=== PATIENT | male | born 1960 | race Caucasian/White ===

== ENCOUNTER 2017-09-06 08:55 | Inpatient (IN) | payer BC, OTHER ==
[2017-09-06 09:45] LABS: #Eosinphils 0.1 thou/uL (0.0-0.7); #Lymphocytes 1.4 thou/uL (1.20-3.40); #Monocytes 0.5 thou/uL (0.11-0.59); #Neutrophils 3.7 thou/uL (1.40-6.50); %Basophils 0.3 % (0.0-1.0); %Eosinophils 1.6 % (0.0-10.0); %Lymphocytes 24.1 % (21.0-51.0); %Monocytes 8.8 % (0.0-10.0); %Neutrophils 65.2 % (42.0-75.0); Hemoglobin 15.1 g/dL (14.0-18.0); Mean Corpuscular HGB CONC 32.4 g/dL (32.0-36.0); Mean Corpuscular Hemoglobin 29.4 pg (27.0-31.0); Mean Corpuscular Volume 90.6 fl (80.0-94.0); Mean Platelet Volume 9.3 fL (7.4-10.4); Platelet Count 110 thou/uL (130-400); RBC Distribution Width 13.3 % (11.5-14.5); Red Blood Cell (RBC) Count 5.15 mill/uL (4.70-6.10); White Blood Cell (WBC) Count 5.6 thou/uL (4.8-10.8)
[2017-09-06 10:07] LABS: ALT (SGPT) 18 U/L (8-55); AST (SGOT) 19 U/L (5-34); Albumin 4.1 g/dL (3.5-5.0); Alkaline Phosphatase 71 U/L (40-150); Anion Gap 12 mmol/L (10-20); BUN (Urea Nitrogen) 17 mg/dL (8.4-25.7); Bilirubin, Total 1.7 mg/dL (0.2-1.2); Calc. Creatinine Clearance 0 mL/min (70-130); Calcium 9.1 mg/dL (7.8-10.44); Carbon Dioxide 31 mmol/L (22-29); Chloride 102 mmol/L (98-107); Estimated GFR-MDRD 70; Globulin 2.8 g/dL (2.4-3.5); Glucose 88 mg/dL (70-105); Potassium 3.3 mmol/L (3.5-5.1); Protein, Total 6.9 g/dL (6.0-8.3); Sodium 142 mmol/L (136-145)
[2017-09-06 10:09] LABS: CKMB 2.5 ng/mL (0-6.6); Troponin I 0.015 ng/mL (< 0.028)
--- NOTE | 2017-09-06 11:09 | RAD ---
CHEST 1 VIEW: Date: 09/06/17 HISTORY: Right-sided chest pain. High blood pressure. COMPARISON: Chest 1 view dated 07/08/16. FINDINGS: Heart size is markedly enlarged. There is obscuration of the left lateral hemidiaphragm. No pneumotho rax. Mild ectasia of the distal thoracic aorta. IMPRESSION: Marked cardiomegaly and obscuration of left lateral hemidiaphragm may represent layering effusion bashir samm marked increased mediastinal fat. POS: OFF
[2017-09-06] MEDS ORDERED: Potassium Chloride 20 MEQ TAB ONE (11:20)
[2017-09-06] MEDS ORDERED: hydrALAZINE 20 MG/ML VIAL ONE (11:20)
[2017-09-06] MEDS ORDERED: Furosemide 40 MG/4 ML VIAL ONE (11:20)
[2017-09-06] MEDS ORDERED: Acetaminophen 325 MG TAB PO PRN (11:59)
[2017-09-06] MEDS ORDERED: Acetaminophen 650 MG Suppository PR PRN (11:59)
[2017-09-06 12:57] LABS: Troponin I 0.021 ng/mL (< 0.028)
[2017-09-06] MEDS ORDERED: Ondansetron HCl/PF 4 MG/2 ML Vial IVP PRN (13:40)
[2017-09-06] MEDS ORDERED: Ondansetron ODT 4 MG TAB PO PRN (13:40)
[2017-09-06 13:47] VITALS: BMI 39.6
[2017-09-06] MEDS ORDERED: Metoprolol Tartrate 5 MG/5 ML VIAL IVP SCH (15:30)
--- NOTE | 2017-09-06 15:55 | CON ---
DATE OF CONSULTATION: 09/06/2017 REASON FOR CONSULTATION: Atrial fibrillation and shortness of breath. HISTORY OF PRESENT ILLNESS: Mr. Gong is a very pleasant 56-year-old white gentleman who comes to the hospital for shortness of breath. He has noted that in the last few days he has been slowly getting more short of breath to the point where he is having to sleep with 2 pillows. He states that he bends the pillows to get him at about a 45 degree angle. He otherwise gets short of breath and starts coughing if he lays too flat and is unable to sleep. He states that today he developed right-sided chest pain. The pain is worse when he moves his arm backwards and it takes a few minutes to get better, but the movement is what triggers it. The pain is not reproducible with one finger as well. He was seen in the ER for this and was found to be in atrial fibrillation , RVR and possibly in heart failure, so Cardiology was consulted for all of this. He has seen Cardiology in the past. He used to see Dr. Booth several years ago. More recently he followed with Dr. Li at [facility] and he had some tests that he is not sure, he thinks he went to the OR and has something stuck in his right arm, but his tells me that she is very certain that he did not have a heart catheterization. It might have been a stress test. We will ask her records for this. PAST MEDICAL HISTORY: 1. COPD. 2. Hiatal hernia. 3. Possible history of atrial fibrillation; however, I asked the patient if he has never been told he has been in atrial fibrillation before, he tells me he had not heard that until today. 4. History of chronic shortness of breath. 5. Obesity. 6. Hypertension. 7. Type 2 diabetes. 8. Depression. 9. Moderate aortic valve insufficiency. PAST SURGICAL HISTORY: 1. Hernia surgery, He states his heart stopped during surgery. SOCIAL HISTORY: No alcohol, tobacco or drugs. He does chew tobacco. OUTPATIENT MEDICATIONS: 1. Losartan/HCTZ 100/25 mg a day. 2. Metformin 500 mg q.a.m. 3. Sertraline. 4. Amlodipine 10 mg a day. 5. Furosemide 40 mg a day. ALLERGIES: PENICILLIN causes hives. FAMILY HISTORY: Noncontributory. REVIEW OF SYSTEMS: A 12-point review of systems was done and is all negative unless stated below. He has had increase in his shortness of breath recently. PHYSICAL EXAMINATION: VITAL SIGNS: Temperature 98.3, pulse from 90-120, respiratory rate 22, satting 94% on room air, blood pressure 161/97. GENERAL: Awake, alert, oriented x3, in no distress. HEENT: Normocephalic, atraumatic. NECK: Supple. LUNGS: Reduced breath sounds. CARDIOVASCULAR: S1, S2, irregularly irregular. Heart rate in the 110s. There is a grade 2/6 systolic murmur in the right upper sternal border. ABDOMEN: Prominent but soft, nontender. EXTREMITIES: 1+ edema. SKIN: Warm and dry. LABORATORY WORK: Reviewed. CBC is unremarkable. D-dimer was normal. Chemistry with low potassium of 3.3, otherwise unremarkable. GFR was 70, total bilirubin was 1.7. Troponin I was negative x2 and a BNP of 164, albumin of 4.1 , globulin of 2.8. Chest x-ray on admission showed marked cardiomegaly and possible left effusion. EKG is reviewed, atrial fibrillation with RVR. ASSESSMENT AND PLAN: 1. Atrial fibrillation with rapid ventricular response, new onset. We will attempt to slow them down with a p.o. beta penelope first. I do not want to start any antiarrhythmics until I am sure what his left ventricular function is , I suspect this might be reduced. We will do full anticoagulation with subcutaneous Lovenox for stroke prophylaxis. If his LV function is normal will plan on doing a EDEN/Cardioversion tomorrow and will start antiarrhythmic. 2. Right-sided chest pain: This is very atypical in nature. We will see what his echocardiogram shows. If he has got severe left ventricular dysfunction, he will need heart catheterization. If he has normal left ventricular, we may schedule a stress test tomorrow. 3. Moderate AI: echo pending. Will get medical records from [facility]. Thank you for letting us to participate in the care of your patient. We will follow. JATIN
[2017-09-06 16:15] LABS: Troponin I 0.016 ng/mL (< 0.028)
[2017-09-06] MEDS: Furosemide 40 MG/4 ML VIAL SLOW IVP SCH (16:23)
[2017-09-06] MEDS ORDERED: HumaLOG 300 UNITS/3 ML VIAL SC PRN (16:53)
[2017-09-06] MEDS ORDERED: Dextrose 50% Abboject 50 ML SYRINGE SLOW IVP PRN (16:53)
[2017-09-06] MEDS ORDERED: Dextrose 5% in Water 1,000 ML IV PRN (16:53)
[2017-09-06] MEDS ORDERED: Potassium Chloride 20 MEQ TAB PO SCH (17:00)
[2017-09-06] MEDS ORDERED: Amiodarone In Dextrose 200 ML IVPB SCH (17:45)
--- NOTE | 2017-09-06 17:51 | HP ---
PRIMARY CARE PHYSICIAN: Prema Johnson M.D. CHIEF COMPLAINT: Chest pain. HISTORY OF PRESENT ILLNESS: Mr. Gong is a pleasant 56-year-old gentleman, who was seen at [facility] on 09/06/2017. He works in the [employer] system. He reports that over the last couple of weeks he has had right-sided chest pain. He describes it as sharp, 9/10 at its worst, on and off, no known aggravating or relieving factors, accompanied by shortness of breath, not accompani ed by nausea or lightheadedness. He denies that there is a pleuritic component. He denies any abdom inal pain. He also reports that he has had long-term bilateral leg swelling for which he takes diure tics. He is unable to recall his medications at this point in time. Please note that the patient is a poor historian. Collateral history was obtained from his by the bedside, review of medical r ecords and discussion with the emergency room physician. REVIEW OF SYSTEMS: The following complete review of systems was negative, unless otherwise mentioned in the HPI or below: Constitutional: Weight loss or gain, ability to conduct usual activities. Skin: Rash, itching. Eyes: Double vision, pain. ENT/Mouth: Nose bleeding, neck stiffness, pain, tenderness. Cardiovascular: Palpitations, dyspnea on exertion, orthopnea. Respiratory: Shortness of breath, wheezing, cough, hemoptysis, fever or night sweats. Gastrointestinal: Poor appetite, abdominal pain, heartburn, nausea, vomiting, constipation, or diarr hea. Genitourinary: Urgency, frequency, dysuria, nocturia. Musculoskeletal: Pain, swelling. Neurologic/Psychiatric: Anxiety, depression. Allergy/Immunologic: Skin rash, bleeding tendency. PAST MEDICAL HISTORY: Significant for hypertension, borderline diabetes mellitus, asthma COPD, and h iatal hernia. PAST SURGICAL HISTORY: Significant for 5 surgeries approximately 4 years ago for a large hiatal kelin ia. He reportedly had cardiac arrest during the surgery and AED was used to resuscitate him. He spe nt 3 months in the hospital following the surgery. FAMILY HISTORY: Significant for heart problems in his father. SOCIAL HISTORY: The patient denies tobacco use, alcohol use or recreational drug use. ALLERGIES: PENICILLIN. CURRENT MEDICATIONS: These were clarified, and include amlodipine 10 mg daily, Lasix 40 mg daily, lo sartan/hydrochlorothiazide 1 tablet daily, metformin 500 mg daily, and Zoloft 25 mg daily. PHYSICAL EXAMINATION: GENERAL: Mr. Gong is awake and alert, not in acute distress. He is morbidly obese. VITAL SIGNS: Blood pressure is 135/107, pulse is 93. He is breathing at rate of 24 and saturating 9 5% on room air. He is afebrile. EYES: No scleral icterus. No conjunctival pallor. ENT: Moist mucosal membranes, no oropharyngeal erythema or exudates. NECK: Supple, nontender, normal range of movement, trachea is midline, jugular veins were difficult to assess. RESPIRATORY: Accessory muscles of breathing are mildly active. Chest wall movements are symmetric b ilaterally. LUNGS: Clear to auscultation without wheeze, rhonchi or crepitations. CARDIOVASCULAR: S1 and S2 are heard, irregular and tachycardic. Peripheral pulses are palpable. No carotid bruit, no pericardial rub. ABDOMEN: Distended, nontender, bowel sounds heard, no hepatomegaly, no splenomegaly. NEUROLOGIC: Cranial nerves II through XII intact. Deep tendon reflexes are 2+. MUSCULOSKELETAL: Power is 5/5 in all 4 extremities. He has bilateral lower extremity edema. SKIN: No rashes or subcutaneous nodules. LYMPHATIC: No cervical lymphadenopathy. PSYCHIATRIC: Normal mood, normal affect, patient is oriented to person, place, and time. LABORATORY DATA: Mr. Gong's labs and investigations were reviewed. I reviewed his electrocardiogram , which shows atrial fibrillation with rapid ventricular response, no ST changes to suggest an acute coronary syndrome. I also reviewed his chest x-ray, which does not show any pulmonary infiltrates. He has cardiomegaly. He also has chronic appearing opacity in the left lower lobe, which has not calvin nged since 07/08/2016. Radiologist feels this may be a layering effusion versus mediastinal fat. Laboratory investigations show normal white count, normal hemoglobin, decreased platelet count of 110 ,000, normal D-dimer of 0.33, normal sodium, decreased potassium of 3.3, elevated carbon dioxide of 3 1, normal anion gap, normal blood urea nitrogen, normal creatinine, elevated total bilirubin of 1.7, otherwise unremarkable liver function tests, elevated BNP of 164 and normal troponin I x2. ASSESSMENT AND PLAN: Mr. Gong is a pleasant 56-year-old gentleman, who was seen at [facility] on 09/06/2017. His problem list includes: 1. Chest pain: Mr. Gong is presenting to the hospital with right-sided chest pain. His chest pain is atypical for coronary artery disease. However, he does have risk factors for coronary artery dise ase. He will be admitted to the hospital for telemetry monitoring and for further management, includ ing Cardiology Service consultation for their opinion. 2. Atrial fibrillation with rapid ventricular response: He appears to have new onset atrial fibrill ation with rapid ventricular response. We will monitor on telemetry, we will await Cardiology Servic e input. 3. Congestive heart failure: He appears to be in congestive heart failure exacerbation. We will ad sharmila him to the hospital and provide intravenous diuretics. 4. Hypokalemia: Replace potassium. 5. Diabetes mellitus type 2: Start Accu-Cheks, sliding scale. 6. Asthma/chronic obstructive pulmonary disease: Bronchodilators as needed. 7. Hypertension: Monitor vital signs, titrate antihypertensives as needed. Many thanks for allowing me to participate in Mr. Gong's care. Please feel free to contact me with a ny questions or concerns. LEVEL OF RISK: High. LEVEL OF COMPLEXITY: High.
[2017-09-06 19:31] LABS: Magnesium 2.5 mg/dL (1.6-2.6); Potassium 3.6 mmol/L (3.5-5.1)
[2017-09-06 19:36] LABS: ALT (SGPT) 21 U/L (8-55); AST (SGOT) 22 U/L (5-34); Albumin 4.4 g/dL (3.5-5.0); Alkaline Phosphatase 79 U/L (40-150); Bilirubin, Direct 0.6 mg/dL (0.1-0.3); Bilirubin, Total 1.8 mg/dL (0.2-1.2); Protein, Total 7.7 g/dL (6.0-8.3)
[2017-09-06] MEDS: Amiodarone HCl 450 MG, Admixture Fee 1 EACH in Dextrose 5% in Water 250 ML IVPB SCH ×3 (20:18)
[2017-09-06] MEDS: Enoxaparin Sodium 120 MG/0.8 ML SYRINGE SC SCH (20:51)
[2017-09-06] MEDS: Metoprolol Tartrate 25 MG TAB PO SCH (20:51)
[2017-09-06] MEDS ORDERED: Metoprolol Tartrate 25 MG TAB PO SCH (21:00)
[2017-09-06] MEDS ORDERED: FLU VACC QS2017-18 36 mo. & older 0.5 ML SYRINGE IM ONE (21:00)
[2017-09-07] MEDS: Amiodarone HCl 450 MG, Admixture Fee 1 EACH in Dextrose 5% in Water 250 ML IVPB SCH ×3 (05:01)
[2017-09-07 05:29] LABS: #Eosinphils 0.1 thou/uL (0.0-0.7); #Lymphocytes 1.6 thou/uL (1.20-3.40); #Monocytes 0.5 thou/uL (0.11-0.59); %Basophils 0.6 % (0.0-1.0); %Eosinophils 2.4 % (0.0-10.0); %Monocytes 9.6 % (0.0-10.0); %Neutrophils 57.3 % (42.0-75.0); Hemoglobin 15.4 g/dL (14.0-18.0); Mean Corpuscular Hemoglobin 28.9 pg (27.0-31.0); Mean Corpuscular Volume 90.4 fl (80.0-94.0); Mean Platelet Volume 9.2 fL (7.4-10.4); Platelet Count 115 thou/uL (130-400); RBC Distribution Width 13.3 % (11.5-14.5); Red Blood Cell (RBC) Count 5.33 mill/uL (4.70-6.10); White Blood Cell (WBC) Count 5.2 thou/uL (4.8-10.8)
[2017-09-07 05:41] LABS: Anion Gap 11 mmol/L (10-20); BUN (Urea Nitrogen) 20 mg/dL (8.4-25.7); Calc. Creatinine Clearance 116 mL/min (70-130); Calcium 9.2 mg/dL (7.8-10.44); Carbon Dioxide 32 mmol/L (22-29); Chloride 101 mmol/L (98-107); Estimated GFR-MDRD 65; Glucose 100 mg/dL (70-105); Potassium 3.4 mmol/L (3.5-5.1); Sodium 141 mmol/L (136-145)
[2017-09-07] MEDS: Furosemide 40 MG/4 ML VIAL SLOW IVP SCH ×2 (06:23→15:46)
[2017-09-07] MEDS ORDERED: Potassium Chloride 20 MEQ TAB PO SCH (08:15)
[2017-09-07] MEDS ORDERED: Enoxaparin Sodium 40 MG/0.4 ML SYRINGE SC SCH (09:00)
[2017-09-07] MEDS ORDERED: Diprivan 0 ML ONE (09:53)
[2017-09-07] MEDS ORDERED: Promethazine HCl 25 MG/ML VIAL IM PRN (10:31)
[2017-09-07] MEDS ORDERED: Ondansetron HCl/PF 4 MG/2 ML Vial IVP PRN (10:31)
[2017-09-07] MEDS ORDERED: Promethazine HCl 25 MG/ML VIAL SLOW IVP PRN (10:31)
[2017-09-07] MEDS: Enoxaparin Sodium 120 MG/0.8 ML SYRINGE SC SCH (11:28)
[2017-09-07] MEDS: Aspirin 325 MG TAB PO SCH (11:29)
[2017-09-07] MEDS: Metoprolol Tartrate 25 MG TAB PO SCH ×2 (11:30→20:30)
[2017-09-07] MEDS ORDERED: Amiodarone 200 MG TAB PO SCH (11:45)
[2017-09-07] MEDS ORDERED: Propofol 200 MG/20 ML VIAL ONE (14:25)
[2017-09-07] MEDS ORDERED: Lidocaine 1% PF 5 ML VIAL ONE (14:25)
--- NOTE | 2017-09-07 15:18 | PDOC.PN ---
- Subjective Encounter Start Date: 09/07/17 Encounter Start Time: 15:16 Pt seen for followup re: CHF exacerbation. Had cardioversion today (after EDEN) , feels better. - Objective MAR Reviewed: Yes Vital Signs & Weight: Vital Signs (12 hours) Temp Pulse Resp BP Pulse Ox 09/07/17 11:04 97.5 F L 61 20 159/94 H 93 L 09/07/17 08:00 97.5 F L 61 20 09/07/17 07:20 97.4 F L 87 16 156/96 H 94 L 09/07/17 04:10 98.3 F 87 18 132/90 93 L Weight Weight 261 lb I&O: 09/06/17 09/07/17 09/08/17 06:59 06:59 06:59 Intake Total 1452 Output Total 2350 Balance -898 Result Diagrams: 09/07/17 04:21 09/07/17 04:21 Additional Labs: Accuchecks 09/07/17 09/06/17 11:09 22:20 POC Glucose 90 124 H EKG Reviewed by me: Yes (Tele: NSR) Phys Exam - Physical Examination Obese HEENT: PERRLA, moist MMs, sclera anicteric, oral pharynx no lesions Neck: no nodes, supple, full ROM Respiratory: no wheezing, no rales, no rhonchi, clear to auscultation bilateral Cardiovascular: RRR, no rub Gastrointestinal: soft, non-tender, positive bowel sounds distended Musculoskeletal: edema present Neurological: moves all 4 limbs Psychiatric: normal affect, A&O x 3 Skin: no rash Dx/Plan (1) CHF exacerbation Code(s): I50.9 - HEART FAILURE, UNSPECIFIED Status: Acute (2) DM2 (diabetes mellitus, type 2) Status: Chronic (3) HTN (hypertension) Code(s): I10 - ESSENTIAL (PRIMARY) HYPERTENSION Status: Chronic (4) COPD (chronic obstructive pulmonary disease) Status: Chronic (5) Atrial fibrillation with RVR Code(s): I48.91 - UNSPECIFIED ATRIAL FIBRILLATION Status: Resolved - Plan * . Improved after cardioversion. Continue diuretics. Likely home tomorrow on amiodarone 400 mg PO BID, Lasix 40 mg Po daily and followup with cardiology in 2 weeks. Review of Systems - Review of Systems Constitutional: negative: fever, chills, sweats, weakness, malaise Respiratory: SOB with Excertion. negative: Cough, Dry, Shortness of Breath, Hemoptysis, Pleuritic Pain, Sputum, Wheezing Cardiovascular: negative: chest pain, palpitations, orthopnea, paroxysmal nocturnal dyspnea, edema, light headedness Gastrointestinal: negative: Nausea, Vomiting, Abdominal Pain, Diarrhea, Constipation, Melena, Hematochezia Genitourinary: negative: Dysuria, Frequency, Incontinence, Hematuria, Retention - Medications/Allergies Allergies/Adverse Reactions: Allergies Allergy/AdvReac Type Severity Reaction Status Date / Time Penicillins Allergy Intermediate Hives Verified 09/06/17 13:47 Medications: Current Medications Acetaminophen (Tylenol) 650 mg PO Q4H PRN PRN Reason: Headache/Fever or Pain Acetaminophen (Tylenol) 650 mg WA Q4H PRN PRN Reason: Headache/Fever or Pain Amiodarone HCl (Cordarone) 400 mg PO BID [facility] Apixaban (Eliquis) 5 mg PO BID [facility] Aspirin (Aspirin) 325 mg PO DAILY [facility] Last Admin: 09/07/17 11:29 Dose: 325 mg Dextrose/Water (Dextrose 50%) 25 gm SLOW IVP PRN PRN PRN Reason: Hypoglycemia Furosemide (Lasix) 40 mg SLOW IVP 0600,1400 [facility] Last Admin: 09/07/17 06:23 Dose: Not Given Glucagon (Glucagon) 1 mg IM PRN PRN PRN Reason: Hypoglycemia Dextrose/Water (D5w) 1,000 mls @ 0 mls/hr IV .Q0M PRN; As Directed PRN Reason: Hypoglycemia Insulin Human Lispro (Humalog) 0 units SC .MILD SLIDING SCALE PRN PRN Reason: Mild Correctional Scale Metoprolol Tartrate (Lopressor) 25 mg PO BID [facility] Last Admin: 09/07/17 11:30 Dose: 25 mg Sertraline HCl (Zoloft) 25 mg PO DAILY [facility] Last Admin: 09/07/17 11:30 Dose: 25 mg Sodium Chloride (Flush - Normal Saline) 10 ml IVF Q12HR [facility] Last Admin: 09/07/17 11:31 Dose: 10 ml Sodium Chloride (Flush - Normal Saline) 10 ml IVF PRN PRN PRN Reason: Saline Flush
[2017-09-07] MEDS: Apixaban 5 MG TAB PO SCH (20:30)
[2017-09-07] MEDS: Amiodarone 200 MG TAB PO SCH (20:30)
--- NOTE | 2017-09-07 22:52 | ECHO ---
DATE OF SERVICE: 09/07/2017. PREPROCEDURE DIAGNOSIS: Atrial fibrillation with RVR. PROCEDURE SUMMARY: The patient was brought to the PCU area for EDEN cardioversion. EDEN was performed initially. The [facility] thea department provided sedation for the patient. Please see their notes for details. After adeq uate sedation was achieved, transesophageal probe was inserted into the mouth and into the esophagus without problems. Multiplanar views were then attempted to be obtained. Of note, patient has a large hiatal hernia that obscured most of our views. Aortic valve appears to be normal. There is mild aortic insufficiency and left atrial appendage is s mall. No evidence of mass or thrombus. None of the other cardiac structures were seen adequately as he has a large hiatal hernia which obscu red the views. We were able to clear him from the thrombus standpoint. His left atrial appendage was seen clearly and it had no evidence of blood clots. CONCLUSIONS: No evidence of any thrombus in the left atrial appendage or left atrium.
--- NOTE | 2017-09-07 22:57 | OP ---
DATE OF SERVICE 09/07/2017. PROCEDURES PERFORMED: Cardioversion. SUMMARY: The patient was brought to the PCU area for planned EDEN cardioversion. EDEN was performed previously. Please see the note for details. Sedation was obtained by the Anesthesia Department, please their notes for details. After adequate s edation was obtained transesophageal echo cleared him of any thrombus in the left atrial appendage. Pads were in place and a single 100 joules synchronized shock was delivered successfully converted hi m from atrial fibrillation into normal sinus rhythm. Heart rate is in the 70s. Patient tolerated th e procedure well. RECOMMENDATIONS: 1. Continue full anticoagulation. We will start him on Eliquis this evening and will switch his ami odarone drip to p.o. load. 2. Follow up with me in the office in 2 weeks, at which point we will schedule an outpatient stress test and further evaluation. 3. Continue IV Lasix today and he may be discharged home tomorrow.
[2017-09-08 05:28] LABS: #Eosinphils 0.2 thou/uL (0.0-0.7); #Lymphocytes 1.1 thou/uL (1.20-3.40); #Monocytes 0.5 thou/uL (0.11-0.59); #Neutrophils 3.2 thou/uL (1.40-6.50); %Basophils 0.5 % (0.0-1.0); %Eosinophils 3.3 % (0.0-10.0); %Lymphocytes 22.5 % (21.0-51.0); %Monocytes 10.8 % (0.0-10.0); %Neutrophils 62.9 % (42.0-75.0); Hemoglobin 15.9 g/dL (14.0-18.0); Mean Corpuscular HGB CONC 33.5 g/dL (32.0-36.0); Mean Corpuscular Hemoglobin 30.4 pg (27.0-31.0); Mean Corpuscular Volume 90.8 fl (80.0-94.0); Mean Platelet Volume 9.3 fL (7.4-10.4); Platelet Count 106 thou/uL (130-400); RBC Distribution Width 13.1 % (11.5-14.5); Red Blood Cell (RBC) Count 5.23 mill/uL (4.70-6.10)
[2017-09-08 05:41] LABS: Anion Gap 12 mmol/L (10-20); BUN (Urea Nitrogen) 20 mg/dL (8.4-25.7); Calc. Creatinine Clearance 120 mL/min (70-130); Calcium 9.5 mg/dL (7.8-10.44); Carbon Dioxide 31 mmol/L (22-29); Chloride 102 mmol/L (98-107); Estimated GFR-MDRD 68; Glucose 100 mg/dL (70-105); Potassium 3.7 mmol/L (3.5-5.1); Sodium 141 mmol/L (136-145)
[2017-09-08] MEDS: Furosemide 40 MG/4 ML VIAL SLOW IVP SCH (06:06)
[2017-09-08] MEDS: Apixaban 5 MG TAB PO SCH (07:49)
[2017-09-08] MEDS: Amiodarone 200 MG TAB PO SCH (07:50)
[2017-09-08] MEDS: Metoprolol Tartrate 25 MG TAB PO SCH (07:50)
[2017-09-08] MEDS: Aspirin 325 MG TAB PO SCH (07:50)
[2017-09-08] MEDS ORDERED: Potassium Chloride 10 MEQ TAB PO SCH (09:00)
[2017-09-08 11:50] VITALS: BP 165/105; TEMP 97.8
--- NOTE | 2017-09-08 17:35 | EKG ---
Test Reason : Blood Pressure : / mmHG Vent. Rate : 091 BPM Atrial Rate : 072 BPM P-R Int : 000 ms QRS Dur : 114 ms QT Int : 408 ms P-R-T Axes : 000 -28 018 degrees QTc Int : 501 ms Sinus rhythm with sinus arrhythmia Incomplete right bundle branch block Prolonged QT Abnormal ECG Confirmed by SEA RODRIGEZ D.O. ([id number]), science editor HIRAM MERCEDES ([id number] on 09/08/2017 5:35:13 PM Referred By: Confirmed By:SEA RODRIGEZ D.O.
--- NOTE | 2017-09-08 17:35 | EKG ---
Test Reason : Blood Pressure : / mmHG Vent. Rate : 091 BPM Atrial Rate : 079 BPM P-R Int : 000 ms QRS Dur : 110 ms QT Int : 398 ms P-R-T Axes : 000 -28 017 degrees QTc Int : 489 ms Sinus rhythm Incomplete right bundle branch block Nonspecific ST abnormality Abnormal ECG Confirmed by SEA RODRIGEZ D.O. ([id number]), market editor HIRAM MERCEDES ([id number] on 09/08/2017 5:34:40 PM Referred By: Confirmed By:SEA RODRIGEZ D.O.
--- NOTE | 2017-09-08 19:21 | DIS ---
DATE OF ADMISSION: 09/06/2017 DATE OF DISCHARGE: 09/08/2017 PRIMARY CARE PHYSICIAN: Prema Johnson M.D. DISCHARGE DIAGNOSES: 1. Atrial fibrillation with rapid ventricular response. 2. Congestive heart failure exacerbation. CONDITION OF PATIENT AT THE TIME OF DISCHARGE: Stable. I assessed Mr. Gong on the day of discharge. He denies any chest pain or shortness of breath. Vital signs are stable. property assessment monitor shows normal sinus rhythm. S1 and S2 are heard, regular. Lungs are clear to auscultation bilaterally. DISCHARGE MEDICATIONS: Apixaban 5 mg 2 times a day, amlodipine 10 mg daily, amiodarone 400 mg 2 times a day, Lasix 40 mg daily, losartan/ hydrochlorothiazide 1 tablet daily, metformin 500 mg daily, metoprolol 25 mg 2 times a day, potassium chloride 10 mEq daily, and Zoloft 25 mg daily. HOSPITAL COURSE: Mr. Gong is a pleasant 50-year-old gentleman who was admitted to [facility] on 09/06/2017 for shortness of breath. He was found to be in congestive heart failure exacerbation as well as atrial fibrillation with rapid ventricular response. He was seen by Dr. Tenorio from Cardiology Service. A 2D echocardiogram showed left ventricular ejection fraction of 50%-55%, mildly dilated left atrium, mild mitral regurgitation, moderate aortic regurgitation and moderate tricuspid regurgitation. He received intravenous diuretics. On 09/07/2017, he underwent EDEN which did not show any evidence of thrombus in the left atrial appendage or left atrium. He subsequently underwent electrical cardioversion. He converted to normal sinus rhythm. He was started on apixaban as well as metoprolol. Dr. Tenorio will follow up with him in office in 2 weeks, at which point he will have outpatient stress test and further evaluation. He diuresed well and was asymptomatic in terms of shortness of breath on the day of discharge. He has been switched back to oral furosemide. On the day of discharge, he has a white count of 5000, hemoglobin 15.9, platelet count 106,000, he had thrombocytopenia throughout this hospitalization , normal sodium, normal potassium, and normal creatinine. His BNP during this hospitalization was 164. TSH was 4.61. He had an elevated total bilirubin of 1.8, but I note that his bilirubin was also elevated at 1.6 in 07/2016. I will leave it to the discretion of the primary care physician as to whether any further workup is needed. Many thanks for allowing me to participate in your patient's care. Please feel free to contact me with any questions or concerns. DISCHARGE DESTINATION: Home. Total amount of time spent coordinating this discharge: 31 minutes JATIN
== END 2017-09-08 14:03 | disposition home or self-care (01) | DRG 310 ==
LOC: EEVIPCON 08:55 → ERS 08:55 → 2SW 13:36 → OBSVTOIN 13:36
PROVIDERS: ADMIT Internal Medicine; ATTEND Internal Medicine
PROC: 5A2204Z Restoration of Cardiac Rhythm, Single (ICD-10-PCS; principal; 2017-09-07)
DX: I48.91 Unspecified atrial fibrillation (principal); D69.6 Thrombocytopenia, unspecified; I11.0 Hypertensive heart disease with heart failure; I50.9 Heart failure, unspecified; I08.3 Combined rheumatic disorders of mitral, aortic and tricuspid valves; J44.9 Chronic obstructive pulmonary disease, unspecified; E87.6 Hypokalemia; Z72.0 Tobacco use; E11.9 Type 2 diabetes mellitus without complications
CPT/HCPCS: 36415; 36416; 71045; 80048; 80053; 82553; 83735; 83880; 84443; 84484; 85025; 85379; 90471; 90682; 90732; 92960; 93005; 93306; 93312; 93798; 96374; 96375; A4216; G0008; G0009; J0282; J0360; J1650; J1940; J2001; J2704; J7070; Q2036

== ENCOUNTER 2018-12-05 06:13 | Inpatient (IN) | payer BC ==
[2018-12-05] MEDS ORDERED: Acetaminophen 500 MG TAB ONE (06:35)
[2018-12-05 07:13] LABS: #Eosinphils 0.1 thou/uL (0.0-0.7); #Lymphocytes 0.7 thou/uL (1.20-3.40); #Monocytes 0.4 thou/uL (0.11-0.59); %Eosinophils 1.8 % (0.0-10.0); %Lymphocytes 8.4 % (21.0-51.0); %Monocytes 4.5 % (0.0-10.0); %Neutrophils 85.3 % (42.0-75.0); Hemoglobin 13.5 g/dL (14.0-18.0); Mean Corpuscular HGB CONC 30.1 g/dL (32.0-36.0); Mean Corpuscular Volume 86.4 fL (78.0-98.0); Mean Platelet Volume 10.1 fL (7.4-10.4); Platelet Count 109 thou/uL (130-400); Red Blood Cell (RBC) Count 5.18 mill/uL (4.70-6.10); White Blood Cell (WBC) Count 8.2 thou/uL (4.8-10.8)
[2018-12-05 07:24] LABS: Bilirubin Negative (Negative); Blood, Urine Trace (Negative); Clarity CLEAR (Clear); Glucose, Urine (Dipstick) Negative (Negative); Leukocyte Negative (Negative); Nitrite Negative (Negative); Protein, Urine (Dipstick) Negative (Neg-Trace); Specific Gravity, Urine 1.007 (1.002-1.036); Urobilinogen 0.2 mg/dL (0.2-1.0)
[2018-12-05 07:27] LABS: Bacteria/HPF None Seen HPF (None Seen); Hyaline Casts/LPF 0-3 HYALINE CAST LPF (0-3 Hyaline); Pathc Cast-AUWi Flag 0.27 (0-2.49); RBC/HPF None Seen HPF (0-3); Squamous Epithelial None Seen HPF (0-3); WBC/HPF None Seen HPF (0-3)
[2018-12-05 07:31] LABS: ALT (SGPT) 25 U/L (8-55); AST (SGOT) 32 U/L (5-34); Albumin 4.5 g/dL (3.5-5.0); Alkaline Phosphatase 74 U/L (40-150); Anion Gap 15 mmol/L (10-20); BUN (Urea Nitrogen) 59 mg/dL (8.4-25.7); CK (CPK) 444 U/L (30-200); Calc. Creatinine Clearance 0 mL/min (70-130); Calcium 9.8 mg/dL (7.8-10.44); Carbon Dioxide 32 mmol/L (22-29); Chloride 95 mmol/L (98-107); Estimated GFR-MDRD 23; Globulin 3.1 g/dL (2.4-3.5); Glucose 102 mg/dL (70-105); Potassium 3.3 mmol/L (3.5-5.1); Protein, Total 7.6 g/dL (6.0-8.3); Sodium 139 mmol/L (136-145)
--- NOTE | 2018-12-05 07:31 | RAD ---
EXAM: Chest 2 views: HISTORY: Cough and bronchitis COMPARISON: 08/13/2018 FINDINGS: Moderate size hiatal hernia. Heart size:Minimally enlarged. Lungs:Patchy increased markings bilaterally with some new minimally confluent parenchymal changes in the left upper lobe concerning for pneumonia. Atherosclerotic changes of the aorta. No significant acute pleural effusion. No overt edema. IMPRESSION: Cardiomegaly with some stable left pleural changes, moderate size hiatal hernia, but with a new patch of alveolar parenchymal density in the left upper lobe concerning for pneumonia. Atherosclerosis of the aorta. Continued follow-up for clearing.
[2018-12-05 07:54] LABS: CKMB 3.9 ng/mL (0-6.6)
[2018-12-05] MEDS ORDERED: cefTRIAXone\\ROCEPHIN 2 GM VIAL ONE (08:15)
[2018-12-05] MEDS ORDERED: Benzonatate 100 MG CAP PO PRN (08:41)
[2018-12-05] MEDS ORDERED: Senokot S 8.6-50 MG TAB PO PRN ×2 (08:41)
[2018-12-05] MEDS ORDERED: Ondansetron PF 4 MG/2 ML Vial IVP PRN (08:41)
[2018-12-05] MEDS ORDERED: Nitroglycerin 0.4 MG TAB (25 Tab Bottle) SL PRN (08:41)
[2018-12-05] MEDS ORDERED: hydrALAZINE 20 MG/ML VIAL SLOW IVP PRN (08:41)
[2018-12-05] MEDS ORDERED: Bisacodyl 5 MG TAB PO PRN ×2 (08:41)
[2018-12-05] MEDS ORDERED: cloNIDine 0.1 MG TAB PO PRN (08:41)
[2018-12-05] MEDS ORDERED: Diabetic Tussin 200 MG/10 ML UDCUP PO PRN (08:41)
[2018-12-05] MEDS ORDERED: Bisacodyl 10 MG SUPP PR PRN (08:41)
[2018-12-05] MEDS ORDERED: Sodium Chloride 0.65% Nasal 44 ML BOT EA NARE PRN (08:41)
[2018-12-05] MEDS ORDERED: Acetaminophen 325 MG TAB PO PRN (08:41)
[2018-12-05] MEDS ORDERED: Famotidine 20 MG TAB PO SCH (09:00)
[2018-12-05] MEDS ORDERED: Aspirin 325 MG TAB ONE (09:35)
[2018-12-05 10:23] LABS: Troponin I 0.017 ng/mL (< 0.028)
--- NOTE | 2018-12-05 10:31 | HP ---
PRIMARY CARE PHYSICIAN: Dr. Prema Johnson. CHIEF COMPLAINT: Cough, congestion, fever, and shortness of breath. HISTORY OF PRESENT ILLNESS: Mr. Gong is a pleasant 58-year-old male, who presented to the ER with above-mentioned complaints. History is mainly obtained by the patient himself and electronic medical records have been reviewed. Case has been disregard. Mr. Gong reports 5 days history of worsening congestion associated with cough, worsening shortness of breath on and off, fever, and chills. He has been having cough, which initially started as a dry cough and turned to a productive cough with production of yellow and green sputum. He reports hoarseness of voice. He denies any hemoptysis or hematemesis. He does have some difficulty with urination, some leg swelling, and abdominal pain without nausea, vomiting, or diarrhea. He works in the [employer] system and has not received his flu vaccine this season. He is not sure if he has had any sick contacts. Upon presentation to the ER, he was hypotensive with a blood pressure of 96/61 and temperature of 101.1. He underwent general evaluation, and his CBC shows WBCs at 8.2, but 85% neutrophils. He was found to have a creatinine of 2.82 with baseline around 1.1. His creatine kinase is elevated to 444 with troponin of 0.033. Urinalysis was unremarkable. Chest x-ray, however: Was consistent with left upper lobe pneumonia. He received azithromycin, Rocephin, and IV fluids in the emergency room and is now feeling much better. He will be admitted to internal Medicine Team for community-acquired pneumonia and SIRS criteria. PAST MEDICAL HISTORY: 1. Hypertension. 2. Diabetes mellitus. 3. Obesity. 4. Reported history of asthma and COPD in the [facility], but the patient refuses any history of same. 5. Hiatal hernia, status post surgery in the past. 6. Regular rhythm. The patient reports that he was shocked and since then he has no recurrence. PAST SURGICAL HISTORY: 1. Approximately 5 surgeries 4 years ago for large hiatal hernia. 2. Reported history of cardiac arrest during the surgery requiring resuscitation. FAMILY HISTORY: Significant for heart problems in his father. SOCIAL HISTORY: He chews tobacco, but does not smoke. He is a social drinker, but no history of alcohol or drug abuse. REVIEW OF SYSTEMS: A 14-point review of system is done. It is negative except for those mentioned in the history and physical. ALLERGIES: INCLUDE PENICILLIN. CURRENT MEDICATIONS: Metoprolol extended release unknown dose and Lasix 20 mg unknown dose. Further need to be confirmed. LABORATORY DATA: CBC shows WBCs 8.2, but 85% neutrophils. Platelet count of 109 and hemoglobin 13.5. Serum chemistry shows potassium 3.3, chloride 95, bicarb 32, BUN 59, creatinine 2.82, creatine kinase 444 with normal liver enzymes and troponin 0.033 with normal CK-MB. Lactic acid is normal. Urinalysis unremarkable. IMAGING STUDIES: Chest x-ray by my review shows evidence of left upper lobe pneumonia without any evidence of pulmonary edema. A 12-lead EKG by my review shows normal sinus rhythm at 100 beats per minute with frequent PVCs. QTc duration is 523 milliseconds. PHYSICAL EXAMINATION: VITAL SIGNS: Most recent blood pressure 96/61, pulse of 86, respirations 18, and saturating 97% on 2 L oxygen. He was 92% on room air upon presentation with a heart rate of 100 on presentation and a blood pressure of 117/77. GENERAL: No acute distress. He does appear somewhat ill and diaphoretic, but is awake, alert, and oriented x3. HEENT: Mucous membrane is slightly dry. No oropharyngeal exudate or erythema. Head is normocephalic and atraumatic. Pupils are equal and reactive to light and accommodation. Extraocular movement intact. NECK: Supple without any lymphadenopathy, JVD, or bruit. CHEST: Clear to auscultation, but decreased breath sounds are heard in the left upper lobe. No wheezes or crackles are heard. HEART: Rate and rhythm are regular with soft systolic murmur. ABDOMEN: Obese, soft, nontender, and nondistended with positive bowel sounds. EXTREMITIES: Free of any cyanosis, clubbing, or edema. SKIN: Free of any rashes or bruises. Feels warm and dry to touch. PSYCHIATRIC: Normal affect. IMPRESSION AND PLAN: 1. Community-acquired pneumonia with SIRS criteria. The patient will be continued on IV antibiotic, namely azithromycin and Rocephin as well as normal saline for resuscitation. Cultures including blood and urine have been obtained in the emergency room and we will continue to follow those. We will continue symptomatic and supportive care in the form of antitussives and nebulizers scheduled and p.r.n. Incentive spirometry will be added. Walking program will be added. 2. Acute renal insufficiency. Hold his Lasix for now. This is likely due to poor oral intake and dehydration from the infection. He will be treated with gentle IV fluids and we will recheck in the morning. Avoid any nephrotoxic medications. 3. Hypokalemia. We will replace and recheck. Hold the Lasix for now as above. 4. History of hypertension. His blood pressure is on the softer side for now. We will hold his metoprolol for now and restart if the blood pressure is better. We will add p.r.n. antihypertensives. 5. History of irregular rhythm. I am not sure if this was an atrial fibrillation/flutter versus he is talking about some ventricular fibrillation after his hiatal hernia surgery. He does report that his hiatal hernia was large enough to be adhered to the heart. I suspect it was VFib turning into cardiac arrest requiring AED shocking rather than atrial fibrillation. Currently, he is in sinus rhythm. Monitor QTc as it is somewhat prolonged and avoid any QTc prolonging medications. 6. History of hiatal hernia. We will use Pepcid p.o. b.i.d. while in the hospital for gastrointestinal prophylaxis. The patient is not on any antacids in outpatient setting. 7. Add p.r.n. medications. DISPOSITION: Mr. Gong is currently being admitted to the hospital for community-acquired pneumonia. He is hemodynamically stable and will be admitted to medical floor. Estimated length of stay at this time is at least 2 to 3 midnights. Further management will depend upon his clinical course. Job ID: [id number]
[2018-12-05 12:18] VITALS: BMI 36.5
[2018-12-05] MEDS: cefTRIAXone\\ROCEPHIN 1 GM in Sodium Chloride 0.9% 100 ML IVPB SCH (12:37)
[2018-12-05] MEDS: Azithromycin 500 MG in Sodium Chloride 0.9% 250 ML 250 ML IVPB SCH (12:37)
[2018-12-05] MEDS: Potassium Chloride 40 MEQ in Sodium Chloride 0.9% 250 ML 250 ML IVPB SCH ×2 (12:39→14:02)
[2018-12-05] MEDS: guaiFENesin ER 600 MG TAB PO SCH ×2 (12:39→20:06)
[2018-12-05] MEDS: Famotidine 20 MG TAB PO SCH (12:40)
[2018-12-05] MEDS: Enoxaparin Sodium 40 MG/0.4 ML SYRINGE SC SCH (12:40)
[2018-12-05] MEDS: Sodium Chloride 0.9% 1,000 ML IV SCH ×2 (12:45→17:17)
[2018-12-05 13:32] LABS: Troponin I 0.023 ng/mL (< 0.028)
[2018-12-06] MEDS: Sodium Chloride 0.9% 1,000 ML IV SCH ×3 (04:53→20:44)
[2018-12-06 06:55] LABS: #Eosinphils 0.1 thou/uL (0.0-0.7); #Lymphocytes 1.2 thou/uL (1.20-3.40); #Monocytes 0.3 thou/uL (0.11-0.59); #Neutrophils 5.3 thou/uL (1.40-6.50); %Basophils 0.1 % (0.0-1.0); %Eosinophils 1.6 % (0.0-10.0); %Lymphocytes 16.8 % (21.0-51.0); %Monocytes 3.7 % (0.0-10.0); %Neutrophils 77.9 % (42.0-75.0); Hemoglobin 12.5 g/dL (14.0-18.0); Mean Corpuscular HGB CONC 33.4 g/dL (32.0-36.0); Mean Corpuscular Hemoglobin 29.2 pg (27.0-31.0); Mean Corpuscular Volume 87.4 fL (78.0-98.0); Mean Platelet Volume 9.5 fL (7.4-10.4); Platelet Count 86 thou/uL (130-400); RBC Distribution Width 12.9 % (11.5-14.5); Red Blood Cell (RBC) Count 4.27 mill/uL (4.70-6.10); White Blood Cell (WBC) Count 6.9 thou/uL (4.8-10.8)
[2018-12-06 07:15] LABS: Anion Gap 12 mmol/L (10-20); BUN (Urea Nitrogen) 43 mg/dL (8.4-25.7); Calc. Creatinine Clearance 70 mL/min (70-130); Calcium 8.9 mg/dL (7.8-10.44); Carbon Dioxide 27 mmol/L (22-29); Chloride 103 mmol/L (98-107); Estimated GFR-MDRD 41; Glucose 95 mg/dL (70-105); Potassium 3.3 mmol/L (3.5-5.1); Sodium 139 mmol/L (136-145)
[2018-12-06] MEDS: cefTRIAXone\\ROCEPHIN 1 GM in Sodium Chloride 0.9% 100 ML IVPB SCH (08:00)
[2018-12-06] MEDS: Azithromycin 500 MG in Sodium Chloride 0.9% 250 ML 250 ML IVPB SCH (08:02)
[2018-12-06] MEDS: Enoxaparin Sodium 40 MG/0.4 ML SYRINGE SC SCH (08:03)
[2018-12-06] MEDS: Famotidine 20 MG TAB PO SCH (08:03)
[2018-12-06] MEDS: guaiFENesin ER 600 MG TAB PO SCH ×2 (08:03→20:43)
--- NOTE | 2018-12-06 17:47 | PDOC.PN ---
- Subjective Encounter Start Date: 12/06/18 Encounter Start Time: 12:20 Subjective: feels better, no sob -: no h/o hepatitis or alc use -: he doesn't know if his platelets were low before - Objective MAR Reviewed: Yes Vital Signs & Weight: Vital Signs (12 hours) Temp Pulse Resp BP Pulse Ox 12/06/18 16:20 98.8 F 102 H 20 115/72 90 L 12/06/18 14:52 79 16 12/06/18 11:36 99.0 F 79 16 117/73 93 L 12/06/18 08:00 94 L 12/06/18 07:25 98.2 F 85 20 114/68 92 L 12/06/18 07:15 100 12/06/18 07:12 81 16 Weight Admit Weight 240 lb Weight 240 lb I&O: 12/05/18 12/06/18 12/07/18 06:59 06:59 06:59 Intake Total 600 Output Total 1950 Balance -1350 Result Diagrams: 12/06/18 06:33 12/06/18 06:33 Phys Exam - Physical Examination HEENT: PERRLA, moist MMs Neck: no JVD, supple Respiratory: no wheezing, no rales Cardiovascular: RRR, no significant murmur Gastrointestinal: soft, non-tender, positive bowel sounds Musculoskeletal: no edema, pulses present Neurological: non-focal, moves all 4 limbs Psychiatric: normal affect, A&O x 3 Dx/Plan (1) PNA (pneumonia) Code(s): J18.9 - PNEUMONIA, UNSPECIFIED ORGANISM Status: Acute Qualifiers: Pneumonia type: due to unspecified organism Laterality: left Lung location: upper lobe of lung Qualified Code(s): J18.1 - Lobar pneumonia, unspecified organism (2) KELECHI (acute kidney injury) Code(s): N17.9 - ACUTE KIDNEY FAILURE, UNSPECIFIED Status: Acute Comment: ? ckd (3) h/o afib Status: Chronic (4) Thrombocytopenia Code(s): D69.6 - THROMBOCYTOPENIA, UNSPECIFIED Status: Chronic (5) h/o hiatal hernia repair Status: Chronic Comment: prior sternotomy for difficult hiatal hernia repair with residual hernia still (6) COPD (chronic obstructive pulmonary disease) Status: Chronic Qualifiers: COPD type: unspecified COPD Qualified Code(s): J44.9 - Chronic obstructive pulmonary disease, unspecified (7) DM2 (diabetes mellitus, type 2) Status: Chronic Qualifiers: Diabetes mellitus nursing home insulin use: without longwall foreman use Diabetes mellitus complication status: with unspecified complications Qualified Code(s) : E11.8 - Type 2 diabetes mellitus with unspecified complications (8) HTN (hypertension) Code(s): I10 - ESSENTIAL (PRIMARY) HYPERTENSION Status: Chronic Qualifiers: Hypertension type: essential hypertension Qualified Code(s): I10 - Essential (primary) hypertension - Plan is on zithromax and ceftriaxone, nebs -: chews tobacco, counselled -: renal function is better with creatinine down to 1.7 from 2.8 -: to ambulate in hallway as tolerated -: will need outpt pulm appt for f/u in 4 weeks. Replace persistent hypokalemi * . Review of Systems - Medications/Allergies Allergies/Adverse Reactions: Allergies Allergy/AdvReac Type Severity Reaction Status Date / Time Penicillins Allergy Intermediate Hives Verified 09/06/17 13:47 Medications: Current Medications Acetaminophen (Tylenol) 650 mg PO Q4H PRN PRN Reason: Headache/Fever/Mild Pain (1-3) Albuterol/Ipratropium (Duoneb) 3 ml NEB [id number] [facility] Last Admin: 12/06/18 14:52 Dose: 3 ml Albuterol/Ipratropium (Duoneb) 3 ml NEB [id number] PRN PRN Reason: SOB &/or Wheezing Benzonatate (Tessalon) 100 mg PO Q6H PRN PRN Reason: Cough Bisacodyl (Dulcolax) 10 mg PO DAILYPRN PRN PRN Reason: Constipation Bisacodyl (Dulcolax) 10 mg [facility] DAILYPRN PRN PRN Reason: Constipation Clonidine (Catapres) 0.1 mg PO Q4H PRN PRN Reason: SBP > 160____ Enoxaparin Sodium (Lovenox) 40 mg SC 0900 [facility] Last Admin: 12/06/18 08:03 Dose: 40 mg Famotidine (Pepcid) 20 mg PO DAILY [facility] Last Admin: 12/06/18 08:03 Dose: 20 mg Guaifenesin (Robitussin Sf) 200 mg PO Q4H PRN PRN Reason: Cough Guaifenesin (Mucinex) 1,200 mg PO Q12HR [facility] Last Admin: 12/06/18 08:03 Dose: 1,200 mg Hydralazine HCl (Apresoline) 10 mg SLOW IVP Q4H PRN PRN Reason: SBP > 180 and HR < 70 Azithromycin 500 mg/ Sodium (Chloride) 250 mls @ 250 mls/hr IVPB Q24HR [facility] Last Admin: 12/06/18 08:02 Dose: 250 mls Ceftriaxone Sodium 1 gm/ (Sodium Chloride) 100 mls @ 200 mls/hr IVPB Q24HR [facility] Last Admin: 12/06/18 08:00 Dose: 100 mls Sodium Chloride (Normal Saline 0.9%) 1,000 mls @ 100 mls/hr IV .Q10H [facility] Last Admin: 12/06/18 14:57 Dose: Not Given Nitroglycerin (Nitrostat) 0.4 mg SL Q5MIN PRN PRN Reason: Chest Pain Ondansetron HCl (Zofran) 4 mg IVP Q6H PRN PRN Reason: Nausea/Vomiting Potassium Chloride (K-Dur) 40 meq PO BID-[facility] Potassium Chloride (K-Dur) 40 meq PO ONE [facility] Senna/Docusate Sodium (Senokot S) 2 tab PO BID PRN PRN Reason: Constipation Sodium Chloride ([place] Nasal [place] 0.65%) 0 ml EA NARE QIDPRN PRN PRN Reason: Nasal Congestion
[2018-12-06] MEDS ORDERED: Potassium Chloride 20 MEQ TAB PO SCH (18:30)
[2018-12-07 06:39] LABS: #Eosinphils 0.1 thou/uL (0.0-0.7); #Monocytes 0.2 thou/uL (0.11-0.59); #Neutrophils 3.2 thou/uL (1.40-6.50); %Basophils 0.6 % (0.0-1.0); %Eosinophils 2.4 % (0.0-10.0); %Lymphocytes 21.4 % (21.0-51.0); %Monocytes 5.4 % (0.0-10.0); %Neutrophils 70.3 % (42.0-75.0); Hemoglobin 12.5 g/dL (14.0-18.0); Mean Corpuscular HGB CONC 33.6 g/dL (32.0-36.0); Mean Corpuscular Hemoglobin 29.7 pg (27.0-31.0); Mean Corpuscular Volume 88.3 fL (78.0-98.0); Mean Platelet Volume 9.3 fL (7.4-10.4); Platelet Count 84 thou/uL (130-400); RBC Distribution Width 12.9 % (11.5-14.5); Red Blood Cell (RBC) Count 4.21 mill/uL (4.70-6.10); White Blood Cell (WBC) Count 4.5 thou/uL (4.8-10.8)
[2018-12-07 07:00] LABS: ALT (SGPT) 19 U/L (8-55); AST (SGOT) 17 U/L (5-34); Albumin 3.7 g/dL (3.5-5.0); Alkaline Phosphatase 56 U/L (40-150); Anion Gap 10 mmol/L (10-20); BUN (Urea Nitrogen) 23 mg/dL (8.4-25.7); Bilirubin, Total 0.7 mg/dL (0.2-1.2); Calc. Creatinine Clearance 94 mL/min (70-130); Calcium 9.1 mg/dL (7.8-10.44); Carbon Dioxide 31 mmol/L (22-29); Chloride 104 mmol/L (98-107); Estimated GFR-MDRD 57; Globulin 3.1 g/dL (2.4-3.5); Glucose 94 mg/dL (70-105); Potassium 3.4 mmol/L (3.5-5.1); Protein, Total 6.8 g/dL (6.0-8.3); Sodium 142 mmol/L (136-145)
[2018-12-07] MEDS: guaiFENesin ER 600 MG TAB PO SCH (07:17)
[2018-12-07] MEDS: cefTRIAXone\\ROCEPHIN 1 GM in Sodium Chloride 0.9% 100 ML IVPB SCH (07:17)
[2018-12-07] MEDS: Famotidine 20 MG TAB PO SCH (07:17)
[2018-12-07 07:22] LABS: HBCM Index 0.06 S/CO (0-0.79); HBSAg Index 0.32 S/CO (0-0.99); Hep A IgM AB Non-Reactive (NonReactive); Hep A IgM S/CO 0.16 S/CO (0-0.79); Hep B Surf Ag Non-Reactive S/CO (NonReactive); Hep C IgG Ab Non-Reactive (NonReactive); Hep C Index 0.08 S/CO (0-0.79); Hepatitis B Core IgM Abs Non-Reactive (NonReactive)
[2018-12-07] MEDS: Enoxaparin Sodium 40 MG/0.4 ML SYRINGE SC SCH (07:24)
[2018-12-07 07:49] VITALS: BP 131/79; TEMP 97.8
[2018-12-07] MEDS ORDERED: Potassium Chloride 20 MEQ TAB PO SCH (08:00)
[2018-12-07] MEDS: Azithromycin 500 MG in Sodium Chloride 0.9% 250 ML 250 ML IVPB SCH (08:58)
--- NOTE | 2018-12-07 15:21 | PDOC.PN ---
- Subjective Encounter Start Date: 12/07/18 Encounter Start Time: 09:10 Subjective: feels better, is amb in hallway -: no sob - Objective MAR Reviewed: Yes Vital Signs & Weight: Vital Signs (12 hours) Temp Pulse Resp BP BP Pulse Ox 12/07/18 07:48 97.8 F 79 17 131/79 91 L 12/07/18 07:24 72 16 12/07/18 05:34 98.1 F 79 20 135/79 92 L Weight Admit Weight 240 lb Weight 240 lb I&O: 12/06/18 12/07/18 12/08/18 06:59 06:59 06:59 Intake Total 600 Output Total 1950 Balance -1350 Result Diagrams: 12/07/18 06:20 12/07/18 06:19 Phys Exam - Physical Examination HEENT: PERRLA, moist MMs Neck: no JVD, supple Respiratory: no wheezing, no rales Cardiovascular: RRR, no significant murmur Gastrointestinal: soft, non-tender, positive bowel sounds Musculoskeletal: no edema, pulses present Neurological: non-focal, moves all 4 limbs Psychiatric: normal affect, A&O x 3 Dx/Plan (1) PNA (pneumonia) Code(s): J18.9 - PNEUMONIA, UNSPECIFIED ORGANISM Status: Acute Qualifiers: Pneumonia type: due to unspecified organism Laterality: left Lung location: upper lobe of lung Qualified Code(s): J18.1 - Lobar pneumonia, unspecified organism (2) KELECHI (acute kidney injury) Code(s): N17.9 - ACUTE KIDNEY FAILURE, UNSPECIFIED Status: Resolved Comment : ?ckd (3) h/o afib Status: Chronic (4) Thrombocytopenia Code(s): D69.6 - THROMBOCYTOPENIA, UNSPECIFIED Status: Chronic (5) h/o hiatal hernia repair Status: Chronic Comment: prior sternotomy for difficult hiatal hernia repair with residual hernia still (6) COPD (chronic obstructive pulmonary disease) Status: Chronic Qualifiers: COPD type: unspecified COPD Qualified Code(s): J44.9 - Chronic obstructive pulmonary disease, unspecified (7) DM2 (diabetes mellitus, type 2) Status: Chronic Qualifiers: Diabetes mellitus alf insulin use: without termite treater use Diabetes mellitus complication status: with unspecified complications Qualified Code(s) : E11.8 - Type 2 diabetes mellitus with unspecified complications (8) HTN (hypertension) Code(s): I10 - ESSENTIAL (PRIMARY) HYPERTENSION Status: Chronic Qualifiers: Hypertension type: essential hypertension Qualified Code(s): I10 - Essential (primary) hypertension - Plan hemostable -: d/w patient and , he needs to f/u with and [place] -: pt is not taking amiodarone anymore at home -: omnicef, has inhalers at home -: dc pt home. Hepatitis panel is -ve, needs further w/u for thrombocytopenia * .
--- NOTE | 2018-12-08 18:05 | DIS ---
DATE OF ADMISSION: 12/05/2018 DATE OF DISCHARGE: 12/07/2018 DISCHARGE DISPOSITION: To home. PRIMARY DISCHARGE DIAGNOSES: Pneumonia, acute kidney injury. SECONDARY DISCHARGE DIAGNOSES: History of chronic obstructive pulmonary disease , chronic thrombocytopenia, likely chronic atrial fibrillation, history of hiatal hernia repair with sternotomy in the past with residual hernia, diabetes mellitus type 2, hypertension, and obesity. PROCEDURES DONE DURING HOSPITALIZATION: Chest x-ray done on the day of admission showed left upper lobe pneumonia with cardiomegaly, moderate-sized hiatal hernia. Blood cultures x2, no growth. Urine culture, no growth. Influenza A and B antigens were negative. Hemoglobin and hematocrit of 12 and 37, platelet count 84, and MCV 88. Discharge BUN and creatinine are 23 and 1.2. Initial BUN and creatinine were 59 and 2.8. Albumin 4.5. Acute hepatitis panel was negative. DISCHARGE MEDICATIONS: 1. Albuterol nebulizer q.6 hourly p.r.n. 2. Norvasc 10 mg p.o. daily. 3. Losartan/hydrochlorothiazide 100/25 mg p.o. daily. 4. Metformin extended release 500 mg p.o. daily. 5. Singulair 10 mg p.o. daily. 6. Eliquis 5 mg p.o. twice daily. 7. Omnicef 300 mg p.o. twice daily for a total of 5 days. 8. Lopressor 25 mg twice daily. 9. Potassium chloride 10 mEq p.o. daily. ALLERGIES: ALLERGIC TO PENICILLIN. DISCHARGE PLAN: The patient to follow up with primary care physician in 1 week. He also needs to have outpatient followup with Dr. Tenorio in [address] Farah to establish pulmonary care in 3 to 4 weeks and for followup of his pneumonia. BRIEF COURSE DURING HOSPITALIZATION: The patient initially came to ER on the 05 of December with complaints of cough, congestion, fever, and shortness of breath. He was essentially admitted for left upper lobe pneumonia. He also had acute kidney injury with mild rhabdomyolysis as well. The patient was placed on IV hydration along with IV antibiotics. His acute kidney injury completely got resolved during his stay here. The patient's shortness of breath has resolved as well. He has been switched to Omnicef and needs to continue this for another 5 days. Saroj Wallis has history of chewing tobacco and has had prior history of complicated hiatal hernia repair requiring sternotomy with residual hernia. In view of above-mentioned issues and his prior history of COPD, the patient has been advised to follow up with Dr. Farah to establish pulmonary care in the outpatient setting for followup. He has had history of chronic atrial fibrillation and has stopped taking amiodarone, but is still taking Eliquis and has not followed up with Dr. Tenorio. He is strongly advised to follow up and call his office to have a followup in 4 weeks. He was counseled with regard to tobacco chewing. Please see a [id number] documentation for the day of discharge on [place]. Job ID: [id number] [facility]
== END 2018-12-07 12:23 | disposition home or self-care (01) | DRG 194 ==
LOC: ERS 06:13 → T4-A 12:00
PROVIDERS: ADMIT Internal Medicine; ATTEND Internal Medicine
DX: J18.1 Lobar pneumonia, unspecified organism (principal); N17.9 Acute kidney failure, unspecified; M62.82 Rhabdomyolysis; J44.9 Chronic obstructive pulmonary disease, unspecified; D69.6 Thrombocytopenia, unspecified; I48.2 Chronic atrial fibrillation; E11.9 Type 2 diabetes mellitus without complications; I10 Essential (primary) hypertension; E66.9 Obesity, unspecified; F17.220 Nicotine dependence, chewing tobacco, uncomplicated; E87.6 Hypokalemia; Z88.0 Allergy status to penicillin; Z71.6 Tobacco abuse counseling; Z98.890 Other specified postprocedural states; Z68.36 Body mass index [BMI] 36.0-36.9, adult
CPT/HCPCS: 36415; 71046; 80048; 80053; 80074; 81003; 81015; 82550; 82553; 83605; 84484; 85025; 87040; 87086; 87804; 93005; 94640; J0456; J0696; J1650; J3480; J3490; J7050; J7620

== ENCOUNTER 2019-06-20 11:56 | Outpatient (CLI) | payer BC ==
--- NOTE | 2019-06-20 13:31 | RAD ---
ONE VIEW CHEST THREE VIEWS RIGHT RIBS: HISTORY: Patient fell off the back of a truck 2 days ago. Right-sided pain. FINDINGS: CHEST ONE VIEW: There are sternotomy wires. Moderate to large hiatal hernia. Atherosclerosis of the aorta. Normal car diac silhouette. Pulmonary vessels are within normal limits. Small right-sided pleural effusion. Bibasilar pleural-parenchymal changes. No pneumothorax or abnormalities in the osseous structures on the chest radiograph. RIGHT RIBS: Minimally displaced fractures involving the posterior right sixth and fifth ribs. Questionable nondis placed fracture along the posterior right fifth and ninth ribs. IMPRESSION: 1. Moderate to large hiatal hernia. 2. Atherosclerosis. 3. Right rib fractures as described above. No pneumothorax. Transcribed Date/Time: 06/20/2019 1:35 PM
== END 2019-06-20 11:57 | disposition home or self-care (01) ==
LOC: BICRAD 11:56
PROVIDERS: ATTEND Nurse Practitioner Family
DX: R07.81 Pleurodynia (principal); S22.41XA Multiple fractures of ribs, right side, initial encounter for closed fracture; K44.9 Diaphragmatic hernia without obstruction or gangrene; I70.0 Atherosclerosis of aorta

== ENCOUNTER 2019-09-16 11:49 | Emergency (ER) | payer BC ==
--- NOTE | 2019-09-16 12:16 | RAD ---
EXAM: Single view of the chest HISTORY: Difficulty breathing COMPARISON: 09/06/2017 FINDINGS: Single view of the chest shows an enlarged but stable cardiomediastinal silhouette. The pa tient is status post sternotomy. A large hiatal hernia is seen. Opacity is seen just above the right hemidiaphragm which may represent a pleural effusion or adjacent atelectasis versus infiltrate. The bones are unremarkable. IMPRESSION: Right basilar atelectasis versus infiltrate
[2019-09-16 12:28] LABS: #Eosinphils 0.1 thou/uL (0.0-0.7); #Lymphocytes 0.9 thou/uL (1.20-3.40); #Monocytes 0.5 thou/uL (0.11-0.59); #Neutrophils 5.9 thou/uL (1.40-6.50); %Basophils 0.3 % (0.0-1.0); %Eosinophils 1.6 % (0.0-10.0); %Lymphocytes 12.1 % (21.0-51.0); %Monocytes 7.3 % (0.0-10.0); %Neutrophils 78.8 % (42.0-75.0); Hemoglobin 14.4 g/dL (14.0-18.0); Mean Corpuscular HGB CONC 32.6 g/dL (32.0-36.0); Mean Corpuscular Hemoglobin 29.3 pg (27.0-31.0); Mean Corpuscular Volume 89.8 fL (78.0-98.0); Mean Platelet Volume 9.3 fL (7.4-10.4); Platelet Count 102 thou/uL (130-400); RBC Distribution Width 12.6 % (11.5-14.5); White Blood Cell (WBC) Count 7.4 thou/uL (4.8-10.8)
[2019-09-16 12:40] LABS: ALT (SGPT) 14 U/L (8-55); AST (SGOT) 20 U/L (5-34); Alkaline Phosphatase 79 U/L (40-110); Anion Gap 14 mmol/L (10-20); BUN (Urea Nitrogen) 19 mg/dL (8.4-25.7); Bilirubin, Total 1.2 mg/dL (0.2-1.2); Calc. Creatinine Clearance 0 mL/min (70-130); Carbon Dioxide 28 mmol/L (22-29); Chloride 104 mmol/L (98-107); Estimated GFR-MDRD 50; Globulin 2.6 g/dL (2.4-3.5); Glucose 109 mg/dL (70-105); Potassium 4.2 mmol/L (3.5-5.1); Protein, Total 6.6 g/dL (6.0-8.3); Sodium 142 mmol/L (136-145)
[2019-09-16] MEDS ORDERED: Furosemide 20 MG/2 ML VIAL ONE (13:17)
--- NOTE | 2019-09-20 17:02 | EKG ---
Test Reason : SOB Blood Pressure : / mmHG Vent. Rate : 087 BPM Atrial Rate : 087 BPM P-R Int : 154 ms QRS Dur : 138 ms QT Int : 408 ms P-R-T Axes : 000 -49 006 degrees QTc Int : 490 ms Sinus rhythm with Premature supraventricular complexes Right bundle branch block Left anterior fascicular block Bifascicular block Moderate voltage criteria for LVH, may be normal variant Abnormal ECG Confirmed by YANELY LOBO ([id number]), photograph editor HIRAM MERCEDES ([id number]) on 09/20/2019 5:01:44 PM Referred By: YAMIL Confirmed By:YANELY LOBO
== END 2019-09-16 13:30 | disposition home or self-care (01) ==
LOC: ERS 11:49
DX: J44.9 Chronic obstructive pulmonary disease, unspecified (principal); I48.91 Unspecified atrial fibrillation; I10 Essential (primary) hypertension; F17.220 Nicotine dependence, chewing tobacco, uncomplicated; Z79.899 Other long term (current) drug therapy
CPT/HCPCS: 36415; 71045; 80053; 83880; 84484; 85025; 93005; 94640; 94760; 96374; J1940

== ENCOUNTER 2021-07-07 12:39 | Observation (INO) | payer BC, OTHER ==
[2021-07-07] MEDS ORDERED: Ondansetron PF 4 MG/2 ML Vial ONE (12:58)
[2021-07-07 14:03] LABS: #Eosinphils 0.3 thou/uL (0.0-0.7); #Lymphocytes 1.6 thou/uL (1.20-3.40); #Monocytes 0.5 thou/uL (0.11-0.59); #Neutrophils 3.4 thou/uL (1.40-6.50); %Basophils 0.2 % (0.0-1.0); %Eosinophils 4.8 % (0.0-10.0); %Monocytes 8.8 % (0.0-10.0); %Neutrophils 59.2 % (42.0-75.0); Hemoglobin 15.8 g/dL (14.0-18.0); Mean Corpuscular HGB CONC 33.1 g/dL (32.0-36.0); Mean Corpuscular Hemoglobin 29.9 pg (27.0-31.0); Mean Corpuscular Volume 90.4 fL (78.0-98.0); Mean Platelet Volume 9.7 fL (7.4-10.4); Platelet Count 104 thou/uL (130-400); RBC Distribution Width 13.5 % (11.5-14.5); Red Blood Cell (RBC) Count 5.28 mill/uL (4.70-6.10); White Blood Cell (WBC) Count 5.7 thou/uL (4.8-10.8)
[2021-07-07 14:17] LABS: ALT (SGPT) 14 U/L (8-55); AST (SGOT) 20 U/L (5-34); Acetaminophen Less than 6.0 mcg/mL (10.0-30.0); Albumin 3.7 g/dL (3.4-4.8); Alcohol Less than 10 mg/dL (Less than 10); Alkaline Phosphatase 80 U/L (40-110); Anion Gap 12 mmol/L (10-20); BUN (Urea Nitrogen) 14 mg/dL (8.4-25.7); Bilirubin, Total 1.6 mg/dL (0.2-1.2); Calc. Creatinine Clearance 0 mL/min (70-130); Calcium 9.4 mg/dL (7.8-10.44); Carbon Dioxide 30 mmol/L (23-31); Chloride 103 mmol/L (98-107); Globulin 2.8 g/dL (2.4-3.5); Glucose 120 mg/dL (80-115); Magnesium 1.9 mg/dL (1.6-2.6); Potassium 3.9 mmol/L (3.5-5.1); Protein, Total 6.5 g/dL (5.8-8.1); Salicylate Less than 8.0 mg/dL (15.0-30.0); Sodium 141 mmol/L (136-145)
[2021-07-07 14:41] LABS: Bacteria/HPF None Seen HPF (None Seen); Bilirubin Negative (Negative); Blood, Urine Trace (Negative); Clarity Clear (Clear); Glucose, Urine (Dipstick) Normal (Negative); Ketone, Urine Negative (Negative); Leukocyte Negative Leu/uL (Negative); Nitrite Negative (Negative); Protein, Urine (Dipstick) 300 mg/dL (Neg-Trace); RBC/HPF 0-3 HPF (0-3); Specific Gravity, Urine 1.011 (1.002-1.036); Squamous Epithelial None Seen HPF (0-3); Urobilinogen Normal mg/dL (Less than 2); WBC/HPF 0-3 HPF (0-3)
[2021-07-07 14:50] LABS: Amphetamine Not Detected (NotDetected); Barbiturates Screen Not Detected (NotDetected); Benzodiazepine Screen Not Detected (NotDetected); Cocaine Metabolite Screen Not Detected (NotDetected); Methadone Not Detected (NotDetected); Methamphetamine Not Detected (NotDetected); Opiate Screen Not Detected (NotDetected); Oxycodone Screen Not Detected (NotDetected); Phencyclidine (PCP) Not Detected (NotDetected); THC/Cannabinoid Screen Not Detected (NotDetected); Tricyclic Screen Not Detected (NotDetected)
[2021-07-07 15:19] LABS: INR-International Normal Ratio 1.2; Prothrombin Time 15.5 sec (12.0-14.7)
[2021-07-07 17:44] LABS: Troponin I 0.033 ng/mL (< 0.028)
[2021-07-07] MEDS ORDERED: Ondansetron PF 4 MG/2 ML Vial IVP PRN (18:15)
[2021-07-07] MEDS ORDERED: Ondansetron ODT 4 MG TAB SL PRN (18:15)
[2021-07-07] MEDS ORDERED: Acetaminophen 325 MG TAB PO PRN (18:15)
[2021-07-07 18:55] VITALS: BMI 37.3
[2021-07-07 19:18] LABS: Troponin I 0.034 ng/mL (< 0.028)
[2021-07-08] MEDS ORDERED: Albuterol 200 PUFF (6.7GM INHALER) INH PRN (00:18)
[2021-07-08 01:51] LABS: Troponin I 0.028 ng/mL (< 0.028)
[2021-07-08 05:45] LABS: #Eosinphils 0.2 thou/uL (0.0-0.7); #Monocytes 0.5 thou/uL (0.11-0.59); %Basophils 0.3 % (0.0-1.0); %Eosinophils 3.3 % (0.0-10.0); %Lymphocytes 22.1 % (21.0-51.0); %Monocytes 10.2 % (0.0-10.0); Mean Corpuscular HGB CONC 32.3 g/dL (32.0-36.0); Mean Corpuscular Hemoglobin 29.5 pg (27.0-31.0); Mean Corpuscular Volume 91.2 fL (78.0-98.0); Mean Platelet Volume 9.6 fL (7.4-10.4); Platelet Count 81 thou/uL (130-400); RBC Distribution Width 13.4 % (11.5-14.5); Red Blood Cell (RBC) Count 4.75 mill/uL (4.70-6.10); White Blood Cell (WBC) Count 4.6 thou/uL (4.8-10.8)
[2021-07-08 05:59] LABS: Anion Gap 12 mmol/L (10-20); BUN (Urea Nitrogen) 13 mg/dL (8.4-25.7); Calc. Creatinine Clearance 85 mL/min (70-130); Calcium 8.9 mg/dL (7.8-10.44); Carbon Dioxide 31 mmol/L (23-31); Cardiac Risk 5.7 (Less than 4.5); Chloride 103 mmol/L (98-107); Cholesterol 164 mg/dl (< 200 Desired); Glucose 76 mg/dL (80-115); HDL Cholesterol 29 mg/dL (>60 Neg Risk); LDL Cholesterol, Calculated 116 mg/dL; Potassium 3.8 mmol/L (3.5-5.1); Sodium 142 mmol/L (136-145); Triglycerides 97 mg/dL (Less than 150)
[2021-07-08] MEDS ORDERED: FLU VACC QS2021-22(6MOS UP)/PF 60 MCG/0.5 ML SYRINGE IM ONE (09:00)
[2021-07-08] MEDS ORDERED: Furosemide 80 MG TAB PO SCH (09:00)
[2021-07-08] MEDS ORDERED: Apixaban 5 MG TAB PO SCH (09:00)
[2021-07-08] MEDS ORDERED: Metoprolol Tartrate 25 MG TAB PO SCH (09:00)
[2021-07-08 12:09] LABS: SARS-CoV-2 PCR by NAA Not Detected (NotDetected)
[2021-07-08 15:58] VITALS: BP 133/92; TEMP 98.4
== END 2021-07-08 16:20 | disposition home or self-care (01) ==
LOC: ERS 12:39 → ERHOLD 16:04 → 2SW 18:03
PROVIDERS: ADMIT Internal Medicine; ATTEND Internal Medicine
DX: R55 Syncope and collapse (principal); J44.9 Chronic obstructive pulmonary disease, unspecified; I13.0 Hypertensive heart and chronic kidney disease with heart failure and stage 1 through stage 4 chronic kidney disease, or unspecified chronic kidney disease; N18.30 Chronic kidney disease, stage 3 unspecified; I50.9 Heart failure, unspecified; I48.91 Unspecified atrial fibrillation; G47.33 Obstructive sleep apnea (adult) (pediatric); D49.512 Neoplasm of unspecified behavior of left kidney; K42.9 Umbilical hernia without obstruction or gangrene; Z79.01 Long term (current) use of anticoagulants; Z79.899 Other long term (current) drug therapy; Z88.0 Allergy status to penicillin; Z91.048 Other nonmedicinal substance allergy status; Z99.81 Dependence on supplemental oxygen; Z20.822 Contact with and (suspected) exposure to COVID-19; V63.5XXA Driver of heavy transport vehicle injured in collision with car, pick-up truck or van in traffic accident, initial encounter
CPT/HCPCS: 36415; 36416; 70450; 71260; 72125; 74177; 80048; 80053; 80061; 80306; 80307; 81003; 81015; 83690; 83735; 83880; 84484; 85025; 85610; 85730; 93005; 93880; G0378; J2405; U0003; U0005